=== PATIENT | male | born 1990 | race Caucasian/White ===

== ENCOUNTER 2018-01-12 19:05 | Emergency (ER) | payer SELFPAY ==
[~2018-01-12] VITALS: Ht 180.3 cm; Wt 87.0 kg
[2018-01-12 20:27] VITALS: BP 151/88
== END 2018-01-12 23:00 | disposition left against medical advice (07) ==
LOC: ER 22:04
DX: K08.89 Other specified disorders of teeth and supporting structures (principal)
CPT/HCPCS: 99281